=== PATIENT | female | born 1955 | race Caucasian/White ===

== ENCOUNTER → 2022-07-17 10:55 | Outpatient (BNVA) | payer MEDICARE, SELFPAY | PROVIDERS: Visit Provider Podiatrist Foot & Ankle Surgery | DX: T84.84XA Pain due to internal orthopedic prosthetic devices, implants and grafts, initial encounter (principal); Y79.2 Prosthetic and other implants, materials and accessory orthopedic devices associated with adverse incidents; M20.12 Hallux valgus (acquired), left foot; M20.5X2 Other deformities of toe(s) (acquired), left foot | CPT/HCPCS: 73630; 99204 ==

== ENCOUNTER → 2022-08-14 13:27 | Outpatient (BNVA) | payer MEDICARE, SELFPAY | PROVIDERS: Visit Provider Podiatrist Foot & Ankle Surgery | DX: Z98.890 Other specified postprocedural states (principal); T84.84XA Pain due to internal orthopedic prosthetic devices, implants and grafts, initial encounter; M20.12 Hallux valgus (acquired), left foot; M20.5X2 Other deformities of toe(s) (acquired), left foot; Y79.2 Prosthetic and other implants, materials and accessory orthopedic devices associated with adverse incidents | CPT/HCPCS: 99214 ==

== ENCOUNTER 2022-08-18 05:39 | Day surgery (SDC) | payer MEDICARE, SELFPAY ==
[2022-08-17 12:19] VITALS: BMI 19.7
[2022-08-18 06:09] VITALS: BP 108/68; PULSE 74; RESP 16; TEMP 36.3; O2SAT 98
[2022-08-18] MEDS: sodium chloride 0.9% 1,000 ML 30 ML IV (06:18)
[2022-08-18] MEDS: CELEcoxib 200 mg Capsule 400 MG PO (06:19)
[2022-08-18] MEDS: gabapentin 300 mg Capsule PO (06:19)
--- NOTE | 2022-08-18 06:41 | ANES.PREANE2 ---
Pre-Anesthetic Assessment Height/Weight: Height 1.63 m Weight 52.163 kg Temp Pulse Resp BP Pulse Ox O2 Del Method 97.3 F L 74 16 108/68 98 08/18/22 06:09 08/18/22 06:09 08/18/22 06:09 08/18/22 06:09 08/18/22 06:09 08/18/22 06:13 Preop Diagnosis: Painful hardware left foot Operation Date: 08/18/22 07:00 Proposed Procedures p Deep hardware removal left foot 13086, T84.84XA(Left) - Matty Mccabe DPM Last intake: Intake Last Liquid Date 08/17/22 Last Liquid Time 11:50 Last Solid Date 08/17/22 Last Solid Time 19:30 Social No alcohol and No tobacco Exam alert, oriented x 3, clear to auscultation bilaterally and regular rate & rhythm Airway Submandibular: within normal limits Mallampati: Class II Pulmonary None reported CV/HEM None reported Hepatic None reported GI None reported Metabolic None reported Musc/skel Chronic left ankle malfusion s/p ORIF Anesthetic Plan ASA status: 1 Anesthesia: General Medications/Allergies Home Medications Medication Instructions Recorded Confirmed Last Taken Type Ca 600 mg-D3 20 mcg-mag oxide 50 20 tab PO DAILY 07/17/22 08/17/22 08/17/22 History dd-Zq-bwfphy-manganese-boron tablet (Calcium 600-D3 Plus (mag-zinc)) hydrocodone 7.5 mg-acetaminophen 1 tab PO Q6H PRN pain 7 days #20 08/14/22 08/17/22 Unknown Rx 325 mg tablet tabs glucosamine sulf dipot 1 cap PO 08/18/22 Unknown History chlr,msm,chond 550 mg-C 30 mg-kristina 1 mg capsule (Glucosamine Chondroitin) Allergies Allergy/AdvReac Type Severity Reaction Status Date / Time codeine Allergy Severe ADR-Vomitin Verified 08/17/22 12:16 g Current Medications Generic Name Dose Route Start Last Admin Trade Name Freq PRN Reason Stop Dose Admin Sodium Chloride 1,000 mls @ 30 mls/hr 08/18/22 05:45 08/18/22 06:18 Sodium Chloride 0.9% IV 08/19/22 05:44 30 mls/hr .Q24H NIRU Administration Data Anesthesia Cardiac Studies: No Data to Display
--- NOTE | 2022-08-18 07:04 | W.PM.OPSUD ---
Surgery/Procedure H&P Update DATE OF PROCEDURE: August 18, 2022 DATE H&P PERFORMED: 08/14/22 CHANGES TO PREVIOUS DOCUMENTATION: none PREOP DIAGNOSIS: Painful hardware left foot PLANNED PROCEDURE: Operation Date: 08/18/22 07:00 Proposed Procedures p Deep hardware removal left foot 93442, T84.84XA(Left) - Matty Mccabe DPM
[2022-08-18] MEDS: ceFAZolin 2,000 MG in sodium chloride 0.9% (plus) 50 ML 100 MG IV (07:08)
[2022-08-18 07:52] VITALS: BP 104/60; PULSE 65; RESP 15; TEMP 36.1; O2SAT 96
[2022-08-18 07:58] VITALS: BP 101/61; PULSE 66; RESP 15; TEMP 36.1; O2SAT 95
--- NOTE | 2022-08-18 08:02 | P.OP_ITS ---
Operative Report Date of procedure: August 18, 2022 Pre-op diagnosis: Preop Diagnosis Painful hardware left foot Post-op diagnosis: Painful hardware left foot Post-op findings: Prominent hardware left foot Procedure done: Deep hardware removal left foot. CPT code 89182 Implants: 4-0 Vicryl, 4 nylon Specimens removed/disposition: 2 plates 8 screws Pathology: None Surgeon: Matty Mccabe D.P.M. Assembly Riveter: Odalis Estimated blood loss: Less than 5 mL 22 IV fluids: None Urine output: None Complications: None Findings: Prominent hardware Brief History: Patient examined and evaluated, findings and treatment options were discussed with patient at length.? She has painful hardware painful hardware, residual hallux valgus and hallux limitus.? X-ray of the left foot shows proud hardware, the medial plate is elevated off of bone approximately 2.5 mm, proximal screw is backed out greater than 2 mm with lucency.? The Lapidus bunionectomy is anatomic with normal intermetatarsal angle, Lapidus arthrodesis demonstrates full bony union without lucency or resorption.? Recommended conservative treatment consisting of topical anti-inflammatory, daily stretching and orthotics as well as accommodative shoes with wide toebox and mesh vamp.? Patient states that she has been doing these things and would like to discuss other options.? She is requesting hardware removal.? I reviewed at length with the patient, the risks, potential complications, benefits, alternatives, expectations, and typical outcomes associated with the surgery. The risks and potential complications were explained in detail, including but not limited to infection, wound dehiscence or soft tissue complications, bleeding and hematoma, chronic edema, neuritis or nerve damage producing numbness or chronic pain, CRPS, failure to relieve pain or worsening pain, thick / painful / unsightly scar, limited motion / stiffness, malposition, delayed union, malunion, or nonunion, fracture, reaction to implants, anesthetic complications, venous thromboembolism, and deformity recurrence.? I discussed the notion of no regrets with the patient as it pertains to complications and outcomes. The patient seemed to understand the nature of the proposed care and required convalescence. They asked appropriate questions, answered to their satisfaction. They are aware no guarantees can be made as to a satisfactory outcome and they understand there may be other possible unforeseen complications or outcomes not listed here that will be treated accordingly if they arise. There were no written or implied guarantees given to the patient. They gave informed consent to proceed. 08/18/2022 hardware removal left foot, MAC, sevenrney, supine, 30 minutes. Procedure: Under mild sedation the patient was brought to the operating room and remained on the gurney in supine position. A timeout was performed. Anesthesia was then administered by the anesthesia service. Local anesthesia was injected by myself consisting of 20 cc of Marcaine 0.5% plain in a proximal Gonzalez block fashion and an additional 20 cc of Exparel subcutaneously in a grid like fashion at the operative site. Well-padded pneumatic tourniquet was applied to the left ankle. The left lower extremity was scrubbed, prepped and draped utilizing normal aseptic technique. Left foot and ankle were exanguinated with an Esmarch bandage and the tourniquet inflated to 250 mmHg. Attention was directed to the dorsal medial aspect of the left foot where previous incision was appreciated. Directly through the previous incision a #15 blade was utilized to incise skin and dissection carried down bluntly and sharply through subcutaneous tissue to the layer of hardware utilizing blunt and sharp technique with care taken to retract and preserve neurovascular and tendinous structures. All bleeders were ligated and cauterized as necessary. Total of 8 screws and 2 plates were removed, hardware both plate and screw heads were prominent and backed out. All rough edges were smoothed. All hardware was passed from operative field in toto without fragmentation or failure. The incision was irrigated with copious amounts of sterile skin solution and closed in a layered fashion with periosteum and subcutaneous tissue both closed with 4- 0 Vicryl in a layered fashion. Skin closed with 4-0 nylon. The incision was dressed with Adaptic, sterile 4 x 4's, Kerlix and Aaron wrap. Postop shoe was applied to the left foot. Tourniquet was then deflated and a prompt hyperemic response was noted to the distal digits of the left foot. Patient tolerated the procedure and anesthesia well was transferred to the PACU with vital signs stable and vascular status intact. Following a period of postoperative monitoring she will be discharged home may be weightbearing as tolerated below threshold of pain. She is to keep her surgical dressings clean, dry and intact until her follow-up visit. Was given at home care instructions as well as follow-up scheduled in podiatry clinic next week. Was prescribed hydrocodone to be taken judiciously as needed for pain. May supplement with [id number] NSAIDs as instructed on package insert. Was also provided my cell phone number to contact with any postoperative questions or concerns.
[2022-08-18 08:05] VITALS: BP 106/69; PULSE 68; TEMP 36.2; O2SAT 96
--- NOTE | 2022-08-18 08:11 | PM.PACU ---
PACU note Narrative: VSS; good pain control; no n/v Exam: awake Disposition: discharged
[2022-08-18 08:30] VITALS: BP 108/72; PULSE 68; RESP 16; TEMP 36.2; O2SAT 98
== END 2022-08-18 08:45 | disposition home or self-care (01) ==
PROVIDERS: Visit Provider Podiatrist Foot & Ankle Surgery
PROC: (CPT 20680; principal; 2022-08-18 07:00)
DX: T84.84XA Pain due to internal orthopedic prosthetic devices, implants and grafts, initial encounter (principal); Y79.2 Prosthetic and other implants, materials and accessory orthopedic devices associated with adverse incidents; Z79.891 Long term (current) use of opiate analgesic
CPT/HCPCS: 20680; C9290; J0690; J2704; J3490; J7030

== ENCOUNTER → 2022-08-24 15:19 | Outpatient (BNVA) | payer MEDICARE, SELFPAY | PROVIDERS: Visit Provider Podiatrist Foot & Ankle Surgery | DX: T84.84XA Pain due to internal orthopedic prosthetic devices, implants and grafts, initial encounter (principal); Y79.2 Prosthetic and other implants, materials and accessory orthopedic devices associated with adverse incidents; M20.12 Hallux valgus (acquired), left foot; M20.5X2 Other deformities of toe(s) (acquired), left foot | CPT/HCPCS: 99024 ==

== ENCOUNTER → 2022-08-31 14:59 | Outpatient (BNVA) | payer MEDICARE, SELFPAY | PROVIDERS: Visit Provider Podiatrist Foot & Ankle Surgery | DX: Z98.890 Other specified postprocedural states (principal); T84.84XA Pain due to internal orthopedic prosthetic devices, implants and grafts, initial encounter; Y79.2 Prosthetic and other implants, materials and accessory orthopedic devices associated with adverse incidents; M20.12 Hallux valgus (acquired), left foot; M20.5X2 Other deformities of toe(s) (acquired), left foot | CPT/HCPCS: 99024 ==

== ENCOUNTER → 2022-10-19 13:09 | Outpatient (BNVA) | payer MEDICARE, SELFPAY | PROVIDERS: Visit Provider Podiatrist Foot & Ankle Surgery | DX: T84.84XA Pain due to internal orthopedic prosthetic devices, implants and grafts, initial encounter (principal); Y79.2 Prosthetic and other implants, materials and accessory orthopedic devices associated with adverse incidents; M20.12 Hallux valgus (acquired), left foot; M20.5X2 Other deformities of toe(s) (acquired), left foot | CPT/HCPCS: 99024 ==

== ENCOUNTER → 2022-12-26 13:30 | Outpatient (BNVA) | payer MEDICARE, SELFPAY | PROVIDERS: Visit Provider Podiatrist Foot & Ankle Surgery | DX: Z98.890 Other specified postprocedural states (principal); G57.52 Tarsal tunnel syndrome, left lower limb | CPT/HCPCS: 99213 ==

== ENCOUNTER 2024-08-04 08:16 | Emergency (ER) | payer MEDICARE, SELFPAY ==
[2024-08-04 08:19] VITALS: BP 154/89; PULSE 68; RESP 20; TEMP 36.7; O2SAT 100
--- NOTE | 2024-08-04 08:25 | XR_ITS ---
WS: [id number] Exam: XR knee RT 3V* [id number] Date/Time of Exam: 08/04/2024 8:29 AM Reason For Exam: fall There is a comminuted depressed fracture of the medial tibial plateau. No other fractures are identified. Minimal joint effusion. Degenerative changes in the medial and lateral joint compartments as well as the posterior patella. XR/XR knee RT 3V* [id number] IMPRESSION: 1. Comminuted depressed medial tibial plateau fracture. CT of the knee recommen ded for more detailed evaluation.
--- NOTE | 2024-08-04 08:32 | W.ED.EXTPRO ---
HPI - Extremity Problem General: Chief complaint: Extremity Injury, Lower Stated complaint: KNEE PAIN Time Seen by Provider: 08/04/24 08:18 History of Present Illness: 69-year-old female was chasing her dog in a chicken twisted her right knee she utilized a facial dog. She was unable to stand. Not able to bear any weight on the right knee no previous injury to the right knee but does have significant arthritic changes take some dietary supplements for arthritis. No previous surgeries to the right knee no fever sweats or chills. Patient has no obvious swelling ecchymosis or laceration at this time. She denies any other injuries. Associated symptoms: Deny chest pain or fever(s) Related Data Home Medications ?Medication ?Instructions ?Recorded ?Confirmed glucosamine sulf dipot 1 cap PO DAILY 08/18/22 08/04/24 chlr,msm,chond 550 mg-C 30 mg-kristina 1 mg capsule (Glucosamine Chondroitin) Previous Rx's ?Medication ?Instructions ?Recorded hydrocodone 5 mg-acetaminophen 325 1 tab PO Q6H PRN pain #20 tabs 08/04/24 mg tablet Allergies Allergy/AdvReac Type Severity Reaction Status Date / Time codeine Allergy Severe ADR-Vomitin Verified 12/26/22 14:05 g Review of Systems Const: Denies: fever(s) or chills Card: Denies: chest pain Resp: Denies: dyspnea GI: Denies: abdominal pain Musc: Denies: neck pain or back pain Physical Exam Const: GENERAL APPEARANCE: cooperative ORIENTATION/CONSCIOUSNESS: Yes awake, Yes oriented to person, Yes oriented to place and Yes oriented to time HENMT: COMMON NORMALS: normocephalic, atraumatic and hearing grossly normal bilaterally HEAD & SCALP: normocephalic and atraumatic Extremity: COMMON NORMALS: normal to inspection, capillary refill normal, no clubbing, cyanosis or edema, no calf tenderness and no pedal edema OTHER: Examination left knee no deformity no ecchymosis no laceration no swelling no joint effusion due to pain unable through physical exam under stress the joint. Neurovascularly intact dorsalis pedis posterior tibialis on the right are normal sensation and range of motion toes are normal. Unable to move the right knee joint due to pain. Neuro: SENSORIUM/ORIENTATION: Yes oriented to person, Yes oriented to place and Yes oriented to time Skin: COMMON NORMALS: no rashes or lesions noted GENERAL SKIN EXAM: no rashes or lesions noted Course Vital Signs: Vital signs: Vital Signs Temperature 98.0 F 08/04/24 08:19 Pulse Rate 65 08/04/24 14:24 Respiratory Rate 20 H 08/04/24 08:19 Blood Pressure 111/72 08/04/24 14:24 Pulse Oximetry 98 08/04/24 14:24 Oxygen Delivery Me thod Room Air 08/04/24 14:24 MDM - Extremity (Nontraumatic) Medical Decision Making Tibial plateau fracture with 5 mm depressions some concern on the CT about extension into the medial condyle of the femur at the cortex. Patient's pain is reasonably well-controlled reviewed with Dr. Shin who was briefly covering for Dr. Castellanos who had been chief controller center today however Dr. Castellanos had a complicated surgical case. Dr. Shin was gracious enough to review the case with me he recommends that we can follow this up as an outpatient place patient in a knee immobilizer crutches nonweightbearing. Return to the emergency room if has further problems otherwise case management make arrangements for outpatient follow-up Medical Records I reviewed the patient's medical records. Lab Data I reviewed the patient's lab results. Radiology Impressions Knee X-Ray 08/04/24 08:25 IMPRESSION: 1. Comminuted depressed medial tibial plateau fracture. CT of the knee recommended for more detailed evaluation. Knee CT 08/04/24 09:55 IMPRESSION: 1. Comminuted medial tibial plateau fracture with depression measuring 5 mm 2. Fracture extends into the femoral metadiaphysis along the medial femoral cortex 3. Small joint effusion. 4. Advanced tricompartment arthritis All radiology interpretation(s) finalized by discharge Discharge Plan Discharge Patient Disposition: Home Clinical Impression: Fracture of tibial plateau, Closed fracture of medial condyle of distal end of right femur Condition: Stable Prescriptions: New hydrocodone-acetaminophen 5-325 mg tablet 1 tab PO Q6H PRN (Reason: pain) Qty: 20 0RF No Action Glucosamine Chondroitin 550-30-1 mg Capsule 1 cap PO DAILY Discharge Orders: Discharge ED (Routine); Ordered 08/04/24 Ordered By: Eleazar Keita Discharge Diet: Usual diet Discharge Activity: Limit activity as instructed Patient Instructions: Opioid Safety, Pain Management Activity Restrictions/Additional Instructions: Thank you for choosing [facility] for your healthcare needs today. It is very important that you follow up as instructed or that you return to the Emergency Department should you have concerns or if your condition changes or worsens in any way. You were seen in the emergency room with complaint of right knee pain on examination you were found to have a tibial plateau fracture and a medial femoral condyle fracture. I discussed your case and reviewed the films with orthopedics they recommended that this can be treated as outpatient we will place you in a knee immobilizer he cannot bear any weight whatsoever on the right leg. Use crutches elevate your knee when possible so it is above the level of the hip. Case management will recommend make arrangements for you to follow-up with orthopedics as an outpatient where they will review definitive care options. You can use pain medication prescribed today as needed. Ice may also be helpful to the knee 20 minutes 4-5 times a day as needed. Print Language: Yemeni Coding Level of Care Code ED Metal [employer] for Elisa Powell
[2024-08-04] MEDS: ketorolac 30 mg/mL INJ 15 MG IVP (09:38)
--- NOTE | 2024-08-04 09:55 | CT_ITS ---
WS: [id number] Noncontrast CT of the RIGHT knee TECHNIQUE: Noncontrast CT RIGHT knee with coronal and sagittal reformatted images. CLINICAL INFORMATION: communuted tibial platue fx DLP: 344.[address] scans at [facility] use at least one of these dose optimization techniques: automated exposure control; mA and/or kV adjustment per patient size (includes targeted exams where dose is matched to clinical indication); or iterative reconstruction. FINDINGS: Osteopenia. Slightly comminuted medial tibial plateau fracture with depression measuring approximately 5 mm worse involving the anterior medial tibial plateau. Fracture extends to the intercondylar fossa and tibial spines. Extension to the femoral metadiaphysis along the medial cortex Lateral tibial plateau is normal in appearance. Fibular head is normal. Advanced osteoarthritis with hypertrophic changes along the joint line. Hypertrophic patella with patella spurring. Distal quadriceps enthesophyte. Small suprapatellar effusion. Dorsal joint calcified loose body. CT/CT knee RT wo con* [id number] IMPRESSION: 1. Comminuted medial tibial plateau fracture with depression measuring 5 mm 2. Fracture extends into the femoral metadiaphysis along the medial femoral co rtex 3. Small joint effusion. 4. Advanced tricompartment arthritis
[2024-08-04 14:24] VITALS: BP 111/72; PULSE 65; O2SAT 98
--- NOTE | 2024-08-05 11:20 | DCPLANNER ---
Message sent to Ortho for urgent appt.
--- NOTE | 2024-08-06 10:49 | PC.SOCIAL ---
Orthopedics F/u Referral message sent to ortho clinic at this time.
== END 2024-08-04 15:46 | disposition home or self-care (01) ==
PROVIDERS: Emergency Provider Family Medicine
DX: S82.141A Displaced bicondylar fracture of right tibia, initial encounter for closed fracture (principal); S72.431A Displaced fracture of medial condyle of right femur, initial encounter for closed fracture; X58.XXXA Exposure to other specified factors, initial encounter
CPT/HCPCS: 29530; 73562; 73700; 96374; 99284; J1885

== ENCOUNTER → 2024-08-07 10:42 | Outpatient (BNVA) | payer MEDICARE, SELFPAY | PROVIDERS: PCP Family Medicine; Visit Provider Orthopaedic Surgery | DX: S72.431A Displaced fracture of medial condyle of right femur, initial encounter for closed fracture (principal); S82.201A Unspecified fracture of shaft of right tibia, initial encounter for closed fracture; W19.XXXA Unspecified fall, initial encounter | CPT/HCPCS: 36415; 73562; 80053; 81001; 85025; 99204 ==

== ENCOUNTER 2024-08-08 15:47 | Inpatient (IN) | payer MEDICARE, SELFPAY ==
[2024-08-08] VITALS (21 sets, daily range): BP systolic 109–168; BP diastolic 60–87; PULSE 76–105; RESP 11–24; TEMP 36.2–36.4; O2SAT 90–100; BMI 19.2
--- NOTE | 2024-08-08 | XR_ITS ---
WS: [id number] XR knee RT 3V* [id number] REASON FOR EXAM: LEONARDO PICS FINDINGS: Plate and screw fixation of depressed medial tibial plateau fracture. Surgical appliances are intact and in proper position and alignment. Fracture fragments are in good apposition and alignment. XR/XR knee RT 3V* [id number] IMPRESSION: Medial tibial plateau fracture with internal fixation as above.
[2024-08-08] MEDS: sodium chloride 0.9% 1,000 ML 30 ML IV (11:58)
--- NOTE | 2024-08-08 12:32 | ANES.PREANE2 ---
Pre-Anesthetic Assessment Height/Weight: Height 1.63 m Weight 50.802 kg Temp Pulse Resp BP Pulse Ox O2 Del Method 97.2 F L 78 18 140/68 97 Room Air 08/08/24 11:41 08/08/24 11:41 08/08/24 11:41 08/08/24 11:41 08/08/24 11:41 08/08/24 11:56 Preop Diagnosis: Right tibial plateau fracture Operation Date: 08/08/24 12:55 Proposed Procedures p ORIF Tibial Plateau(Right) - Douglas Shin DO Familial anesthetic complications: NONE Was Beta Marilu taken within 24 hours: N/A Was Clonidine taken within 24 hours: N/A Last intake: Intake Last Liquid Date 08/07/24 Last Liquid Time 22:00 Last Solid Date 08/07/24 Last Solid Time 22:00 Social No alcohol and No tobacco Exam alert, oriented x 3, clear to auscultation bilaterally and regular rate & rhythm Airway Mallampati: Class I Dentition: chipped and full Anesthetic Plan ASA status: 1 Anesthesia: General Risk of > 500 ml blood loss (7ml/kg in children): No Medications/Allergies Home Medications ?Medication ?Instructions ?Recorded ?Confirmed ?Last Taken ?Type glucosamine sulf dipot 1 cap PO DAILY 08/18/22 08/07/24 08/07/24 History chlr,msm,chond 550 mg-C 30 mg-kristina 1 mg capsule (Glucosamine Chondroitin) hydrocodone 5 mg-acetaminophen 325 1 tab PO Q6H PRN pain #20 tabs 08/04/24 08/07/24 08/08/24 Rx mg tablet Allergies Allergy/AdvReac Type Severity Reaction Status Date / Time codeine Allergy Severe ADR-Vomitin Verified 08/08/24 11:46 g Current Medications Generic Name Dose Route Start Last Admin Trade Name Freq PRN Reason Stop Dose Admin Sodium Chloride 1,000 mls @ 30 mls/hr 08/08/24 11:30 08/08/24 11:58 Sodium Chloride 0.9% IV 08/09/24 11:29 30 mls/hr .Q24H NIRU Administration PFSH Anesthesia Social History Smoking and tobacco/nicotine status: unknown if used tobacco/nicotine Data Anesthesia Cardiac Studies: No Data to Display
--- NOTE | 2024-08-08 13:13 | W.PM.OPSUD ---
Surgery/Procedure H&P Update DATE OF PROCEDURE: August 08, 2024 DATE H&P PERFORMED: 08/07/24 H&P UPDATE INFORMATION: I have reviewed H&P completed within last 30 days, I have examined patient prior to procedure and No changes to prior documentation PREOP DIAGNOSIS: Right tibial plateau fracture PLANNED PROCEDURE: Operation Date: 08/08/24 12:55 Proposed Procedures p ORIF Tibial Plateau(Right) - Douglas Shin DO
[2024-08-08] MEDS: ceFAZolin 2,000 mg SDV 2000 MG IVP ×2 (13:26→20:42)
[2024-08-08] MEDS: lidocaine-epi 1% 20 mL INJ INJECTION (13:57)
[2024-08-08] MEDS: fentaNYL 50 mcg/mL INJ 2mL IVP ×2 (15:42→15:49)
[2024-08-08] MEDS: HYDROmorphone 1 mg/mL INJ 1ml 0.5 MG IVP ×2 (16:03→16:13)
[2024-08-08] MEDS: acetaminophen 1,000 MG/100 ML PIGGYBACK 400 MG IV (16:22)
--- NOTE | 2024-08-08 16:30 | ANE.PACU2 ---
Inpatient post-anesthesia follow up: Airway intact: Yes Vital signs: Temperature 97.8 F Pulse Rate 67 Respiratory Rate 16 Blood Pressure 112/73 Pulse Oximetry 96 Oxygen Delivery Me thod Room Air Oxygen Flow Rate 6 Fraction of Inspir ed Oxygen Hydration adequate: Yes Nausea and vomiting: No Pain level: 1 Mental status: Baseline
[2024-08-08] MEDS: docusate sodium 100 mg Capsule PO (17:06)
[2024-08-08] MEDS: HYDROcodone-acetaminophen 5-325 mg Tablet PO ×2 (17:06→21:08)
[2024-08-08] MEDS: sodium chloride 0.9% 1,000 ML 50 ML IV (17:07)
[2024-08-08] MEDS: morphine 4 mg/mL SDV 1 mL 1 MG IVP (20:42)
[2024-08-09] VITALS (8 sets, daily range): BP systolic 102–152; BP diastolic 59–88; PULSE 60–83; RESP 16–19; TEMP 36.7–36.8; O2SAT 95–99
[2024-08-09] MEDS: HYDROcodone-acetaminophen 5-325 mg Tablet PO ×4 (04:04→20:37)
[2024-08-09] MEDS: ceFAZolin 2,000 mg SDV 2000 MG IVP ×2 (04:30→13:35)
[2024-08-09] MEDS: sodium chloride 0.9% 1,000 ML 50 ML IV (06:46)
[2024-08-09] MEDS: docusate sodium 100 mg Capsule PO ×2 (09:15→18:08)
[2024-08-09] MEDS: aspirin 325 mg EC Tablet PO (09:15)
--- NOTE | 2024-08-09 11:41 | PC.CHAP ---
Pastoral Care Encounter/Spiritual Assessment Type of Contact [] Declined auger machine offbearer visit [] Patient/Family/Request visit [] Outpatient visit [] Follow-up visit [] Physician referral [] Code/Alert [x] Routine visit [] Staff referral [] Actively dying [] Patient sleeping [] Family support [] [] Out of room [] Palliative care [] [] Receiving care in room [] Pre-surgical visit [] Trauma [] Long length of stay [] ICU visit [] Other: Relational/Emotional Strength [x] Patient feels connected with others/family/visitors/staff [] Distress [] Loneliness/isolation [] Abandonment Spirituality of Patient [x] Person of Katerina [x] Attends Anabaptism of their [place]ina [x] Believes in Prayer [x] Reads Bible or Catholic materials [] There are Spiritual issues to be addressed Teller Manager Interventions [x] Prayer [x] Active listening [x] Non-anxious presence [X] Spiritual/emotional support [] Crisis/trauma care [] Spiritual counseling [] Bereavement support [] Provided bereavement packet [] Provided Bible/devotional materials [] Provided toy/stuffed animal, coloring book to patient or family member [] Provided Communion [] Anointing/[place] [] Salvation [] Completed spiritual assessment [] Other: Impact on Illness or Injury [] Angry [] Fearful [] Anxious [] Often cries [] Exhaustion [] Unable to work [] Unable to attend anglican [] Unable to walk/stand [] Unable to read [] Unable to drive [] Unable to eat/drink [] Unable to sleep [] Unable to be with family [] Patient intubated [] Other: Summary Prayer + Spiritual support Time spent with patient 1Hr
[2024-08-09] MEDS: morphine 4 mg/mL SDV 1 mL 1 MG IVP (13:34)
--- NOTE | 2024-08-09 13:55 | PM.PN ---
Subjective Subjective: Patient is doing well pain is controlled with pain meds. Vitals/I&O/Wt Last Vital Signs Temp 98.0 F 08/09/24 11:13 Pulse 76 08/09/24 11:13 Resp 18 08/09/24 13:34 BP 117/76 08/09/24 11:13 Pulse Ox 97 08/09/24 11:13 O2 Del Method Room Air 08/09/24 11:13 O2 Flow Rate 6 08/08/24 15:38 08/08/24 08/09/24 08/09/24 22:59 06:59 14:59 Intake Total 1220 / 1220 950 / 2170 360 / 360 Output Total 20 / 20 Balance 1200 / 1200 950 / 2150 360 / 360 Weight last 48 hrs Weight 122 lb 8 oz Weight 112 lb Weight 112 lb Physical Exam Narrative: Dressing clean dry and intact sitting comfortably in bed A&P Assessment and plan (1) Fracture of tibial plateau: Patient is postop day #1 open reduction internal fixation of right tibial plateau fracture Nonweightbearing Aspirin for DVT prophylaxis Up with physical therapy Discharge when able to get home health care. PDMP PDMP Reviewed: Not Reviewed Attestations Medical Necessity Statement*: Needs home health care set up to be discharged Coding Level of Care Code Acute Code for Chg Fwd Diagnoses Fracture of tibial plateau S82.143A
[2024-08-09] MEDS: ketorolac 30 mg/mL INJ IVP ×2 (14:38→23:06)
[2024-08-10] MEDS: sodium chloride 0.9% 1,000 ML 50 ML IV (02:06)
[2024-08-10] MEDS: HYDROcodone-acetaminophen 5-325 mg Tablet PO ×5 (02:06→21:49)
[2024-08-10 04:00] VITALS: BP 108/64; PULSE 61; RESP 16; TEMP 36.6; O2SAT 94
[2024-08-10] MEDS: ketorolac 30 mg/mL INJ IVP (05:54)
[2024-08-10 07:53] VITALS: BP 112/73; PULSE 67; RESP 16; TEMP 36.6; O2SAT 96
--- NOTE | 2024-08-10 08:16 | PM.PN ---
Subjective Subjective: Patient doing well pain is controlled pain medication. Vitals/I&O/Wt Last Vital Signs Temp 97.8 F 08/10/24 07:53 Pulse 67 08/10/24 07:53 Resp 16 08/10/24 07:53 BP 112/73 08/10/24 07:53 Pulse Ox 96 08/10/24 07:53 O2 Del Method Room Air 08/10/24 07:53 O2 Flow Rate 6 08/08/24 15:38 08/09/24 08/10/24 08/10/24 22:59 06:59 14:59 Intake Total 240 / 600 966.667 / 1566.667 Balance 240 / 600 966.667 / 1566.667 Weight last 48 hrs Weight 127 lb 4.8 oz Weight 122 lb 8 oz Weight 112 lb Weight 112 lb Physical Exam Narrative: Dressings clean dry intact. Legs neuro vas intact A&P Assessment and plan (1) Fracture of tibial plateau: Patient postop day 2 right tibial plateau Awaiting window caser for discharge for home health. Qualifiers: Encounter type: subsequent encounter Fracture type: closed Laterality: right Fracture healing: with routine healing Qualified Code(s): S82.141D - Displaced bicondylar fracture of right tibia, subsequent encounter for closed fracture with routine healing PDMP PDMP Reviewed: Not Reviewed Attestations Medical Necessity Statement*: Pain control Coding Level of Care Code Acute Code for Chg Fwd Diagnoses Closed fracture of right tibial plateau with routine healing, subsequent encounter S82.141D Encounter type: subsequent encounter Fracture type: closed Laterality: right Fracture healing: with routine healing
[2024-08-10] MEDS: docusate sodium 100 mg Capsule PO ×2 (08:32→17:31)
[2024-08-10] MEDS: aspirin 325 mg EC Tablet PO (08:33)
[2024-08-10 11:18] VITALS: BP 119/73; PULSE 56; RESP 17; TEMP 36.4; O2SAT 98
[2024-08-10 15:46] VITALS: BP 120/72; PULSE 65; RESP 16; TEMP 36.6; O2SAT 97
[2024-08-10 20:50] VITALS: BP 153/81; PULSE 67; RESP 17; TEMP 36.4; O2SAT 97
[2024-08-11 00:02] VITALS: BP 114/69; PULSE 69; RESP 16; TEMP 36.6; O2SAT 95
[2024-08-11] MEDS: HYDROcodone-acetaminophen 5-325 mg Tablet PO ×3 (01:29→11:20)
[2024-08-11 03:51] VITALS: BP 108/66; PULSE 63; RESP 16; TEMP 36.6; O2SAT 94
--- NOTE | 2024-08-11 06:48 | P.DS_ITS ---
Discharge Providers Date of Admission: 08/08/24 15:47 Date of Discharge: August 11, 2024 Attending Provider at Admission: Douglas Shin DO Attending Provider at Discharge: Douglas Shin DO Primary Care Provider: Yokasta Neff MD Diagnoses at Discharge Discharge Diagnosis (1) Fracture of tibial plateau: Status: Acute Qualifiers: Encounter type: subsequent encounter Fracture healing: with routine healing Fracture type: closed Laterality: right Qualified Code(s): S82.141D - Displaced bicondylar fracture of right tibia, subsequent encounter for closed fracture with routine healing Reason for Visit Reason for Visit: S82.143A Physical Exam Narrative: Pain controlled resting comfortably in bed Discharge Data Studies Completed and Pending Pending at discharge Category Date Time Status C-arm Fluoroscopy 63962 Routine Exams 08/08/24 11:27 Taken Vitals Last Vital Signs Temp 98 F 08/11/24 03:51 Pulse 63 08/11/24 03:51 Resp 16 08/11/24 03:51 BP 108/66 08/11/24 03:51 Pulse Ox 94 08/11/24 03:51 O2 Del Method Room Air 08/11/24 03:51 O2 Flow Rate 6 08/08/24 15:38 Discharge Plan Discharge Patient Disposition: Home Condition: Stable Prescriptions: New hydrocodone-acetaminophen 5-325 mg tablet 1 - 2 tab PO .Q4-6H Qty: 40 0RF aspirin 325 mg tablet 325 mg PO DAILY 30 Days Qty: 30 0RF Continued Glucosamine Chondroitin 550-30-1 mg Capsule 1 cap PO DAILY Discontinued hydrocodone-acetaminophen 5-325 mg tablet 1 tab PO Q6H PRN (Reason: pain) Qty: 20 0RF Discharge Orders: Discharge Order (Routine); Ordered 08/11/24 Ordered By: Douglas Shin Discharge Diet: Advance as tolerated Discharge Activity: Limit activity as instructed Patient Instructions: Acute Wound Care (DC), Opioid Safety, Post Anesthesia Care Activity Restrictions/Additional Instructions: You are being discharged from the hospital today during which time you have been under the care of Dr. Shin. You had a tibial plateau fracture. You were treated for this injury with open reduction internal fixation of tibial plateau. You may resume you normal diet (including any special diets as directed by your primary doctor) as well as your home medications. You should follow up with you primary doctor if you have any questions regarding medication you took prior to your stay in the hospital. You may take your pain medication as prescribed. After the first few days, take your pain medication as needed. Do not drive or drink alcohol while taking your pain medication. Your injury may increase your risk of developing a blood clot,or DVT, in your arm or leg. This could potentially dislodge and travel to your lungs and become a life threatening condition called apulmonary embolus,or PE. You have been prescribed aspirin to be taken to prevent this. Frequent movement of the legs will also help prevent this from occurring. If you develop any new or worsening cough, chestpain, bloody sputum or shortness of breath, call 911 or go to the EmergencyRoom. Always keep your surgical incision/dressing clean and dry. If you experience increasing pain at your incision site, redness, swelling, increasing discharge, foul odors, or fevers (greater than 100.4), night sweats or chills you should call the office at the above number. If you feel this is an emergency you should be evaluated in the Emergency Department of a nearby hospital. Orthopedic Patient Instructions Summary: Weight Bearing: Nonweightbearing Activity: As tolerated. Diet: Regular. Wound Care: Keep dressing clean and dry. Anticoagulation: Aspirin Pain Medication: Take only as needed. Ice, rest and elevation will be of great benefit. Please plan to follow-up [facility] Dr Shin in 2 weeks. You will need to call the clinic [phone] to schedule this visit. Thank you far allowing me to participate in your care. Do not hesitate to call the office with any questions or concerns. Discharge Attestations Time Spent in Discharge Care*: less than 30 min Quality Metrics Clinical Quality Measures [ No reported AMI, CVA or VTE this stay] Coding Level of Care Code Acute Code for Chg Fwd Diagnoses Closed fracture of right tibial plateau with routine healing, subsequent encounter S82.141D Encounter type: subsequent encounter Fracture healing: with routine healing Fracture type: closed Laterality: right
[2024-08-11 08:00] VITALS: BP 130/75; PULSE 61; RESP 16; TEMP 36.6; O2SAT 97
[2024-08-11] MEDS: docusate sodium 100 mg Capsule PO (09:17)
[2024-08-11] MEDS: aspirin 325 mg EC Tablet PO (09:17)
[2024-08-11 11:17] VITALS: BP 149/82; PULSE 59; RESP 16; TEMP 36.6; O2SAT 98
--- NOTE | 2024-08-11 12:13 | PC.SOCIAL ---
IMM updated Updated pt on IMM. No questions voiced. Provided pt a copy. Initialed, dated, & timed a copy & placed in chart.
[2024-08-11 16:11] VITALS: BP 149/82; PULSE 59; RESP 16; TEMP 36.6; O2SAT 98
--- NOTE | 2024-08-18 09:54 | PM.OP ---
Operative Report Date of procedure: 2024 Pre-op diagnosis: Right medial tibial plateau fracture. Post-op diagnosis: same Procedure done: Open reduction internal fixation of right medial tibial plateau fracture. Surgeon: Douglas Shin DO Estimated blood loss (mL): 20 Procedure: Open reduction internal fixation of left tibial plateau fracture Patient brought to the operative suite after undergoing anesthesia was placed in the supine position. All areas impingement well-padded. Patient's prepped draped in sterile fashion. Skin incisions made down the midline case patient needs a total knee in the future. The dissection was made out medially pes tendons were left in place. The fracture was identified. A small window was made in order to tamp up the fragments. The fragments were tamped up and then pinned into position. And then a rim plate was bent it was a 2.7 mm recon plate was used along the medial edge of the plateau. Multiple screws were fired across the fracture alignment placed in a rafting technique. And then calcium phosphate cement was injected underneath this. We was then closed in a layered fashion with 0 Vicryl 2-0 Vicryl and Monocryl suture. Sterile dressings were applied and patient was transferred to the PACU in stable condition.
== END 2024-08-11 15:00 | disposition home health service (06) | DRG 494 ==
LOC: MEDSURG 15:47
PROVIDERS: Admitting Provider Orthopaedic Surgery; PCP Family Medicine; Visit Provider Orthopaedic Surgery
DX: S82.141A Displaced bicondylar fracture of right tibia, initial encounter for closed fracture (principal); Z88.5 Allergy status to narcotic agent; X50.1XXA Overexertion from prolonged static or awkward postures, initial encounter
CPT/HCPCS: 36415; 73562; 76000; 80053; 81001; 85025; 97110; 97116; 97161; 97165; 99204; C1713; J0131; J0690; J1100; J1171; J1885; J2270; J2405; J2704; J3010; J7030; J9999

== ENCOUNTER → 2024-08-26 09:15 | Outpatient (BNVA) | payer MEDICARE, SELFPAY | PROVIDERS: PCP Family Medicine; Visit Provider Orthopaedic Surgery | DX: M54.12 Radiculopathy, cervical region (principal) | CPT/HCPCS: 73562; 99024 ==

== ENCOUNTER 2024-09-17 15:01 | Outpatient (CLI) | payer MEDICARE, SELFPAY ==
--- NOTE | 2024-09-17 | USR_ITS ---
NOTE: Report was unsigned for reason: Order was edited. Original Signature date and time was: 09/17/24 @ 7:35 PM [facility] Report Call: [phone] assistance Online chat: [email or web address] Name: LACY JERRY Age: 69Years F Date: 09/17/2024 SSN: -- : 1955 Study: US DUPLEX EXTREM VEINS UNILAT OR LTD Requesting Physician: ALO FERRELL Images: [id number] Add?l Studies: Provided Clinical History: PROCEDURE INFORMATION: Exam: US Duplex Right Lower Extremity Veins, Limited Exam date and time: 09/17/2024 4:09 PM Age: 69 years old Clinical indication: Swelling (edema) of limb; Lower extremity, right; Prior surgery; Surgery date: 3-7 days post-operative; Surgery type: Post RT knee surg TECHNIQUE: Imaging protocol: Real-time duplex ultrasound of the right extremity with 2-D phillips scale, color Doppler flow and spectral waveform analysis including responses to compression and other maneuvers (when performed) with image documentation. Limited exam was focused on the right lower extremity veins. COMPARISON: No relevant prior studies available. FINDINGS: Right deep veins: Unremarkable. The common femoral, femoral, proximal profunda femoral and popliteal veins are patent without thrombus. Normal Doppler waveforms. Normal compressibility and/or augmentation response. Superficial veins: Greater saphenous vein at the saphenofemoral junction is patent without thrombus. Soft tissues: Unremarkable. IMPRESSION: No evidence of deep vein thrombosis. Thank you for allowing us to participate in the care of your patient. LACY JERRY Final Radiology Report Dictated and Authenticated by: Angelito Zhou MD 09/17/2024 7:35 PM Central Time ([place] & [place]) [facility]
--- NOTE | 2024-09-17 15:15 | USCV_ITS ---
Margaret Garg Age: 69 Gender: F : 1955 Exam Date: 09/17/2024 14:15 Ordering Phys: Douglas Shin DO Technologist: Exam Location: [facility]_ Indication: post rt hip surg rt calf pain PROCEDURES: Venous duplex imaging was performed in only the right lower extremity. The following venous structures were evaluated: common femoral vein, profunda vein, proximal portion of the greater saphenous vein, superficial femoral vein, and the popliteal vein. FINDINGS: Normal 2-D Doppler and augmentation and compressibility throughout the lower extremity venous structures. Additional imaging through the proximal calf veins also reveals no thrombus. Limited evaluation of the greater saphenous vein is patent with no thrombus. CONCLUSIONS No evidence of right lower extremity DVT. Avinash Dailey MD (Electronically Signed) Final Date: 17 Sep 2024 14:48 S
== END 2024-09-17 15:02 | disposition home or self-care (01) ==
PROVIDERS: PCP Family Medicine; Visit Provider Orthopaedic Surgery
DX: M79.604 Pain in right leg (principal)
CPT/HCPCS: 93971

== ENCOUNTER → 2024-09-23 08:56 | Outpatient (BNVA) | payer MEDICARE, SELFPAY | PROVIDERS: PCP Family Medicine; Visit Provider Orthopaedic Surgery | DX: M25.561 Pain in right knee (principal) | CPT/HCPCS: 73562; 99024 ==

== ENCOUNTER → 2024-11-04 08:15 | Outpatient (BNVA) | payer MEDICARE, SELFPAY | PROVIDERS: PCP Family Medicine; Visit Provider Orthopaedic Surgery | DX: Z98.890 Other specified postprocedural states (principal); Z48.89 Encounter for other specified surgical aftercare | CPT/HCPCS: 73562; 99024 ==

== ENCOUNTER → 2025-01-07 11:50 | Outpatient (BNVA) | payer MEDICARE, SELFPAY | PROVIDERS: PCP Family Medicine; Visit Provider Family Medicine | DX: M81.0 Age-related osteoporosis without current pathological fracture (principal); Z87.81 Personal history of (healed) traumatic fracture; Z13.6 Encounter for screening for cardiovascular disorders | CPT/HCPCS: 80061; 82306; 84443 ==

== ENCOUNTER 2025-01-15 14:02 | Outpatient (CLI) | payer MEDICARE, SELFPAY ==
--- NOTE | 2025-01-15 14:20 | MM_ITS ---
WS: [id number] BILATERAL SCREENING DIGITAL TOMOSYNTHESIS MAMMOGRAM WITH CAD HISTORY: breast cancer screening COMPARISON: 12/05/2017 Bilateral CC and MLO views with tomosynthesis and synthetic mammography submitted. Computer aided detection analyzed. Breast composition: There are scattered areas of fibroglandular density. No suspicious masses, microcalcifications or architectural distortion. MM/MM scr BI tomosynthesis [id number] IMPRESSION: BI-RADS: 1 - Negative. FOLLOW UP: 1 Year Follow-up
--- NOTE | 2025-01-15 15:00 | XR_ITS ---
WS: [id number] DEXA (DUAL ENERGY X-RAY ABSORPTIOMETRY) Bone mineral density was performed using a [employer] machine. HISTORY: osteoporosis screening COMPARISON: None available. Left forearm BMD: 0.546 g/cm2. T score: -3.8 Z score: -1.8 Total hip BMD: Left: 0.726 g/cm2. T score: -2.2 Z score: -0.4 Right: 0.676 g/cm2. T score: -2.6 Z score: -0.8 10 year probability of a major osteoporotic fracture is 16.4%. XR/XR DEXA axial skeleton* [id number] IMPRESSION: OSTEOPOROSIS based upon the WHO classification for females.
== END 2025-01-15 14:03 | disposition home or self-care (01) ==
LOC: RAD 14:03
PROVIDERS: PCP Family Medicine; Visit Provider Family Medicine
DX: Z12.31 Encounter for screening mammogram for malignant neoplasm of breast (principal); Z13.820 Encounter for screening for osteoporosis; Z78.0 Asymptomatic menopausal state; R92.323 Mammographic fibroglandular density, bilateral breasts; M81.0 Age-related osteoporosis without current pathological fracture
CPT/HCPCS: 77063; 77067; 77080

== ENCOUNTER → 2025-01-27 08:56 | Outpatient (BNVA) | payer MEDICARE, SELFPAY | PROVIDERS: PCP Family Medicine; Visit Provider Dermatology | DX: L23.9 Allergic contact dermatitis, unspecified cause (principal); L70.0 Acne vulgaris; Q82.5 Congenital non-neoplastic nevus; L82.1 Other seborrheic keratosis; D23.72 Other benign neoplasm of skin of left lower limb, including hip; S30.860A Insect bite (nonvenomous) of lower back and pelvis, initial encounter; X58.XXXA Exposure to other specified factors, initial encounter; Z08 Encounter for follow-up examination after completed treatment for malignant neoplasm; Z85.828 Personal history of other malignant neoplasm of skin; L57.0 Actinic keratosis | CPT/HCPCS: 17000; 99204 ==

== ENCOUNTER → 2025-02-11 09:18 | Outpatient (BNVA) | payer MEDICARE, SELFPAY | PROVIDERS: PCP Family Medicine; Visit Provider Dermatology | DX: L70.0 Acne vulgaris (principal); L23.9 Allergic contact dermatitis, unspecified cause; L82.1 Other seborrheic keratosis; Z08 Encounter for follow-up examination after completed treatment for malignant neoplasm; Z85.828 Personal history of other malignant neoplasm of skin; L57.0 Actinic keratosis | CPT/HCPCS: 17000; 99214 ==

== ENCOUNTER → 2025-02-17 13:02 | Outpatient (BNVA) | payer MEDICARE, SELFPAY | PROVIDERS: PCP Family Medicine; Visit Provider Orthopaedic Surgery | DX: Z98.890 Other specified postprocedural states (principal); S82.141D Displaced bicondylar fracture of right tibia, subsequent encounter for closed fracture with routine healing; X58.XXXD Exposure to other specified factors, subsequent encounter | CPT/HCPCS: 73560; 73565; 99213 ==